=== PATIENT | female | born 1990 | race Caucasian/White ===

== ENCOUNTER 2017-11-03 01:04 | Day surgery (SDC) | payer BC ==
[2017-11-03 01:45] VITALS: BMI 26.6
--- NOTE | 2017-11-03 02:12 | PDOC.LDHP ---
Labor and Delivery H&P Chief complaint: contractions, decreased movement, other HPI: Patient of Dr Johnson, here for decreased FM and some dsch. No VB, has some irregular contractions, no ROBLES or visual changes. Was checked by Alex recently and was 2 cm. Current gestational age (weeks): 39 (5) Dating criteria: last menstrual period Grav: 1 Current complications: none Abnormal US findings: No Current medications: none Allergies/Adverse Reactions: Allergies Allergy/AdvReac Type Severity Reaction Status Date / Time Penicillins Allergy Intermediate happened Verified 11/03/17 01:35 as a child - Physical Exam Vital signs reviewed and normal: yes (first BP was 146/80, then 135/84) General: NAD Heart: RRR Lungs: CTAB Abdomen: gravid Extremeties: no edema FHT: category 1 - Vaginal Exam cm dilated: 2 Effacement: 75% Station: -1 - Plan Plan: observation in L&D (Assessment: latent labor. No real cervical change from previos. We will recheck in one hour. Amnisure sent.)
[2017-11-03 02:15] LABS: Amnisure Internal Control QC ACCEPTABLE (ACCEPTABLE); Amnisure Test No Membranes Rupture (No Rupture)
--- NOTE | 2017-11-03 02:36 | PDOC.EVN ---
Event Note - Event Note Event Note: Amnisure negative. Strip Cat 1. BPs better. Will recheck cx soon.Patient seen.
== END 2017-11-03 03:15 | disposition home or self-care (01) ==
LOC: L&D/OP 01:04
PROVIDERS: ATTEND Student in an Organized Health Care Education/Training Program
DX: O47.1 False labor at or after 37 completed weeks of gestation (principal); O36.8130 Decreased fetal movements, third trimester, not applicable or unspecified; Z3A.39 39 weeks gestation of pregnancy; Z88.0 Allergy status to penicillin; Z79.899 Other long term (current) drug therapy
CPT/HCPCS: 84112; 99283

== ENCOUNTER 2017-11-03 16:28 | Inpatient (IN) | payer BC ==
[2017-11-03 17:11] VITALS: BMI 26.9
[2017-11-03] MEDS: Lactated Ringer's 1,000 ML IV SCH ×2 (17:33→21:43)
--- NOTE | 2017-11-03 18:24 | PDOC.LDHP ---
Labor and Delivery H&P Chief complaint: contractions HPI: 27yo at 39w5d by LMP here with painful contractions. +mucus bloody, no LOF. Current gestational age (weeks): 39 Due date: 11/05/16 Dating criteria: last menstrual period Grav: 1 Para: 0 Current complications: none Abnormal US findings: No Past Medical History: anxiety, depression no meds currently Current medications: pre-gonzalo vitamins, other (zantac) Previous surgical history: other (hysteroscopy) Allergies/Adverse Reactions: Allergies Allergy/AdvReac Type Severity Reaction Status Date / Time Penicillins Allergy Intermediate happened Verified 11/03/17 17:10 as a child Social history: none - Physical Exam Vital signs reviewed and normal: yes General: NAD Heart: RRR Lungs: CTAB Abdomen: gravid Extremeties: no edema FHT: category 2, variable decelerations (mild with contractions) [place] contractions every: q5-6min - Vaginal Exam cm dilated: 4 Effacement: 75% Station: 0 - OB Labs Blood type: O RH: negative Antibody Screen: negative HIV: negative RPR: negative HEPSAg: negative 1 hour GCT: negative GBS: negative Rubella: immune - Assessment L&D Assessment: term patient in labor - Plan Plan: admit to L&D, labor augmentation if indicated, informed consent obtained, anesthesia consult for pain management -: IVF bolus for variable decels, if Cat 1 NST x 30min ok for ambulation with intermittent monitoring.
[2017-11-03] MEDS ORDERED: Promethazine HCl 25 MG/ML VIAL IM PRN (18:42)
[2017-11-03] MEDS ORDERED: Diphenoxylate HCl/Atropine Tablet PO PRN (18:42)
[2017-11-03] MEDS ORDERED: Ibuprofen 800 MG TAB PO PRN (18:42)
[2017-11-03] MEDS ORDERED: Lidocaine 1% (PF) 30 ML VIAL SC PRN (18:42)
[2017-11-03] MEDS ORDERED: HYDROcodone/Acetaminophen 5/325 mg Tablet PO PRN ×2 (18:42)
[2017-11-03] MEDS ORDERED: Lactated Ringer's 1,000 ML IV SCH (18:42)
[2017-11-03] MEDS ORDERED: LR 500 ML/Oxytocin 10 units 500 ML IV SCH (18:42)
[2017-11-03] MEDS ORDERED: Ondansetron HCl/PF 4 MG/2 ML Vial IVP PRN (18:42)
[2017-11-03] MEDS ORDERED: Carboprost 250 MCG/ML AMP IM PRN (18:42)
[2017-11-03 18:48] LABS: Hemoglobin 13.4 g/dL (12.0-16.0); Mean Corpuscular HGB CONC 34.6 g/dL (32.0-36.0); Mean Corpuscular Hemoglobin 32.5 pg (27.0-31.0); Mean Platelet Volume 10.3 fL (7.4-10.4); Platelet Count 148 thou/uL (130-400); RBC Distribution Width 11.7 % (11.5-14.5); Red Blood Cell (RBC) Count 4.12 mill/uL (4.20-5.40); White Blood Cell (WBC) Count 10.5 thou/uL (4.8-10.8)
[2017-11-03 19:18] LABS: HBSAg Index 0.37 S/CO (0-0.99); Hep B Surf Ag Non-Reactive S/CO (NonReactive)
[2017-11-03 19:19] LABS: Syphilis Antibody Nonreactive (Nonreactive); Syphilis Antibody Index 0.04 S/CO (<1.00 Non-Reactive)
[2017-11-04] MEDS: Lactated Ringer's 1,000 ML IV SCH (03:43)
[2017-11-04] MEDS ORDERED: Bupivacaine 20 ML, Fentanyl 400 MCG in Sodium Chloride 0.9% 72 ML EPIDURAL SCH (03:45)
[2017-11-04] MEDS ORDERED: diphenhydrAMINE 50 MG/ML VIAL IVP PRN (04:08)
[2017-11-04] MEDS ORDERED: Eucerin (Mineral Oil/Petrolatum,White) 30 gm Jar TOP PRN (04:08)
[2017-11-04] MEDS ORDERED: Ondansetron HCl/PF 4 MG/2 ML Vial IVP PRN (04:08)
[2017-11-04] MEDS ORDERED: Lactated Ringer's 500 ML IV PRN (04:08)
[2017-11-04] MEDS ORDERED: Naloxone HCl 0.4 mg/ml Vial IVP PRN ×2 (04:08)
[2017-11-04] MEDS ORDERED: Acetaminophen 325 MG TAB PO PRN (04:08)
[2017-11-04] MEDS ORDERED: Promethazine HCl 25 MG/ML VIAL IM PRN (04:08)
[2017-11-04] MEDS ORDERED: ePHEDrine/0.9% NaCl/PF SYRINGE 50 mg/10 ml SLOW IVP PRN (04:08)
[2017-11-04] MEDS ORDERED: Fentanyl 4mcg/Marcaine 0.1% Cassette 100 ML EPIDURAL SCH (04:15)
[2017-11-04] MEDS ORDERED: Communication Order-Pharmacy FS SCH (04:15)
[2017-11-04] MEDS ORDERED: CEFAZOLIN/Water 2 GM/20 ML SYRINGE SLOW IVP SCH (07:50)
[2017-11-04] MEDS: LR / Pitocin 40 units/1000 ml 1,000 ML IV PRN ×3 (07:50→10:46)
--- NOTE | 2017-11-04 08:15 | PDOC.OPDEL ---
OB Operative/Delivery Note Delivery Dr/Surgeon: Alex Assist: n/a Pre-Delivery Diagnosis: active labor Procedure/Post Delivery Dx: spontaneous vaginal delivery Weeks gestation: 39 Anesthesia: epidural - Findings A Sex: male Weight: 7 lb 1 oz - 1 min: 8 - 5 min: 9 - Additional Findings/Plan Placenta delivered: spontaneous Repaired Obstetrical Laceration: 2nd degree (and left labial, repaired with 2-0 vicryla nd 3-0 vicryl respectively) Estimated blood loss: 200 Compilations/Other Findings: body cord x 1 Post delivery plan: routine recovery
[2017-11-04] MEDS ORDERED: CEFAZOLIN/Water 2 GM/20 ML SYRINGE ONE (08:54)
[2017-11-04] MEDS ORDERED: Adacel (T-DAP) 0.5 ML VIAL IM ONE (11:06)
[2017-11-04] MEDS ORDERED: Preparation H Ointment 28 GM TUBE PR PRN (11:06)
[2017-11-04] MEDS ORDERED: LR / Pitocin 40 units/1000 ml 1,000 ML IV SCH (11:06)
[2017-11-04] MEDS ORDERED: Milk Of Magnesia 30 ML UDCUP PO PRN (11:06)
[2017-11-04] MEDS ORDERED: HYDROcodone/Acetaminophen 5/325 mg Tablet PO PRN ×2 (11:06)
[2017-11-04] MEDS ORDERED: diphenhydrAMINE 25 MG CAP PO PRN (11:06)
[2017-11-04] MEDS ORDERED: Lanolin Ointment 7 GM TUBE TOP PRN (11:06)
[2017-11-04] MEDS ORDERED: Benzocaine/Menthol 20-0.5% 60 ML CAN TOP PRN (11:06)
[2017-11-04] MEDS ORDERED: Bisacodyl 10 MG SUPP PR PRN (11:06)
[2017-11-04] MEDS ORDERED: Docusate Calcium (SURFAK) 240 MG CAP PO SCH (12:00)
[2017-11-04] MEDS ORDERED: Prenatal Vitamin 1 TAB PO SCH (12:00)
[2017-11-04] MEDS: Ibuprofen 800 MG TAB PO SCH ×2 (13:28→21:03)
[2017-11-04] MEDS: Ferrous Sulfate 325 MG TAB PO SCH (18:02)
[2017-11-04] MEDS: Docusate Calcium (SURFAK) 240 MG CAP PO SCH (21:02)
[2017-11-05] MEDS: Ibuprofen 800 MG TAB PO SCH ×3 (05:16→21:33)
[2017-11-05] MEDS: Docusate Calcium (SURFAK) 240 MG CAP PO SCH ×2 (09:43→21:32)
[2017-11-05] MEDS: Prenatal Vitamin 1 TAB PO SCH (09:43)
[2017-11-05] MEDS: Ferrous Sulfate 325 MG TAB PO SCH ×2 (09:43→18:44)
--- NOTE | 2017-11-05 12:22 | PDOC.PP ---
Post Progress Note Post Day #: 1 PO intake tolerated: yes Flatus: yes Ambulation: yes Vital Signs (12 hours) Temp Pulse Resp BP BP 11/05/17 08:59 98.3 F 55 L 18 112/81 11/05/17 08:50 98.3 F 55 L 18 11/05/17 05:20 98.6 F 68 16 111/70 11/05/17 00:50 98.4 F 65 16 106/55 L Weight Weight 172 lb - Physical Examination General: NAD Cardiovascular: RRR Respiratory: non-labored breathing Abdominal: no distention, appropriately TTP Fundus firm & at: umb-2 Skin: no rash Neurological: no gross focal deficits Psychiatric: normal affect Result Diagrams: 11/03/17 17:33 Additional Labs: Post Labs Hep Bs Antigen Non-Reactive S/CO (NonReactive) 11/03/17 17:33 (1) Term delivered Code(s): O80 - ENCOUNTER FOR FULL-TERM UNCOMPLICATED DELIVERY Status: Acute - Assessment/Plan VSSAF Doing well lochia < menses , going well. Rh neg s/p rhogam, RImm Cont PP care.
[2017-11-06] MEDS: Ibuprofen 800 MG TAB PO SCH (05:04)
[2017-11-06 08:29] VITALS: BP 114/67; TEMP 98.5
[2017-11-06] MEDS: Ferrous Sulfate 325 MG TAB PO SCH (08:46)
[2017-11-06] MEDS: Docusate Calcium (SURFAK) 240 MG CAP PO SCH (09:36)
[2017-11-06] MEDS: Prenatal Vitamin 1 TAB PO SCH (09:36)
--- NOTE | 2017-11-06 12:08 | PDOC.PP ---
Post Progress Note Post Day #: 2 PO intake tolerated: yes Flatus: yes Ambulation: yes Vital Signs (12 hours) Temp Pulse Resp BP 11/06/17 08:29 98.5 F 48 L 20 114/67 11/06/17 07:40 98.2 F 65 16 Weight Weight 172 lb - Physical Examination General: NAD Cardiovascular: RRR Respiratory: non-labored breathing Abdominal: no distention, appropriately TTP Fundus firm & at: umb-2 Neurological: no gross focal deficits Psychiatric: normal affect Result Diagrams: 11/03/17 17:33 Additional Labs: Post Labs Hep Bs Antigen Non-Reactive S/CO (NonReactive) 11/03/17 17:33 (1) Term delivered Code(s): O80 - ENCOUNTER FOR FULL-TERM UNCOMPLICATED DELIVERY Status: Acute - Assessment/Plan VSSAF Doing well, lochia < menses. , going well. Rh neg, s/p rhogam, RImm DC home FU 6 wk
== END 2017-11-06 15:00 | disposition home or self-care (01) | DRG 775 ==
LOC: L&D/OP 16:28 → L&D 16:58 → 3SW 11-04 10:57
PROVIDERS: ADMIT Student in an Organized Health Care Education/Training Program; ATTEND Student in an Organized Health Care Education/Training Program
PROC: 10E0XZZ Delivery of Products of Conception, External Approach (ICD-10-PCS; principal; 2017-11-05)
PROC: 0KQM0ZZ Repair Perineum Muscle, Open Approach (ICD-10-PCS; 2017-11-05)
PROC: 4A0HXCZ Measurement of Products of Conception, Cardiac Rate, External Approach (ICD-10-PCS; 2017-11-05)
PROC: 10907ZC Drainage of Amniotic Fluid, Therapeutic from Products of Conception, Via Natural or Artificial Opening (ICD-10-PCS; 2017-11-05)
DX: O76 Abnormality in fetal heart rate and rhythm complicating labor and delivery (principal); O69.81X0 Labor and delivery complicated by cord around neck, without compression, not applicable or unspecified; O69.89X0 Labor and delivery complicated by other cord complications, not applicable or unspecified; O70.1 Second degree perineal laceration during delivery; Z37.0 Single live birth; Z3A.39 39 weeks gestation of pregnancy; Z88.0 Allergy status to penicillin
CPT/HCPCS: 36415; 51702; 84112; 85027; 85461; 86780; 87340; 90384; 96372; 99283; J2001; J3010; J3490; J7050